=== PATIENT | male | born 1985 | race Caucasian/White ===

== ENCOUNTER 2018-02-05 09:10 | Emergency (ER) | payer OTHER ==
[~2018-02-05] VITALS: Ht 185.4 cm; Wt 77.1 kg
[2018-02-05] MEDS ORDERED: VIBRAMYCIN 100100 MG PO (09:56)
[2018-02-05 10:03] LABS: URINE BILIRUBIN NEGATIVE (Negative); URINE BLOOD NEGATIVE (Negative); URINE CLARITY CLEAR; URINE COLOR ORANGE; URINE GLUCOSE-RANDOM NEGATIVE (Negative); URINE KETONES NEGATIVE (Negative); URINE LEUKOCYTES-REFLEX NEGATIVE (Negative); URINE NITRITE-REFLEX NEGATIVE (Negative); URINE PROTEIN NEGATIVE (Negative); URINE SPECIFIC GRAVITY 1.015 (1.005-1.030); URINE UROBILINOGEN 0.2 E.U./dl (0.2-1.0)
[2018-02-05 10:10] VITALS: BP 144/78
== END 2018-02-05 10:10 | disposition home or self-care (01) ==
LOC: M.ERS 09:10
PROVIDERS: Emergency Medicine Emergency Medical Services
DX: L03.114 Cellulitis of left upper limb (principal); N34.2 Other urethritis